=== PATIENT | male | born 1960 | race Hispanic/Latino ===

== ENCOUNTER 2022-05-31 10:38 | Emergency (ER) | payer SELFPAY ==
--- NOTE | 2022-05-31 11:02 | Event Note ---
ED Screening Note ED Screening Note: hx mi/ k stones severe abd pain with htn This initial assessment/diagnostic orders/clinical plan/treatment(s) is/are subject to change based on patients health status, clinical progression and re- assessment by fellow clinical providers in the ED. Further treatment and workup at subsequent clinical providers discretion. Patient/guardian urged not to elope from the ED as their condition may be serious if not clinically assessed and managed. Initial orders include: ro acs ro dissection ro k stone to main
[2022-05-31 11:56] LABS: Basophils # (Auto) 0.1 K/mm3 (0.0-0.1); Basophils % (Auto) 1.1 % (0.0-1.8); Eosinophils # (Auto) 0.1 K/mm3 (0.0-0.4); Eosinophils % (Auto) 0.5 % (0.0-4.3); Hematocrit 48.6 % (35.5-45.6); Hemoglobin 15.8 gm/dl (11.8-15.2); Lymphocytes # (Auto) 1.2 K/mm3 (1.2-5.4); Lymphocytes % (Auto) 9.2 % (13.4-35.0); Mean Corpuscular HGB Conc 33 % (32-34); Mean Corpuscular Volume 100 fl (84-94); Monocytes # (Auto) 0.6 K/mm3 (0.0-0.8); Platelet Count 224 K/mm3 (140-440); Red Blood Count 4.85 M/mm3 (3.65-5.03); Red Cell Distribution Width 14.5 % (13.2-15.2)
--- NOTE | 2022-05-31 11:56 | XRay Report ---
CHEST 2 VIEWS INDICATION / CLINICAL INFORMATION: Chest Pain. COMPARISON: None available. FINDINGS: SUPPORT DEVICES: None. HEART / MEDIASTINUM: No significant abnormality. LUNGS / PLEURA: No significant pulmonary or pleural abnormality. No pneumothorax. ADDITIONAL FINDINGS: No significant additional findings. IMPRESSION: 1. No acute findings. Signer Name: Morales Murillo MD Signed: 05/31/2022 11:51 AM Workstation Name: [email or web address]
[2022-05-31 12:04] LABS: INR 0.99 (0.87-1.13)
[2022-05-31 12:05] LABS: Partial Thromboplastin Time 25.8 Sec. (24.2-36.6)
[2022-05-31 12:26] LABS: Alanine Aminotransferase 53 units/L (7-56); Albumin 4.6 g/dL (3.9-5); BUN/Creatinine Ratio 11; Blood Urea Nitrogen 17 mg/dL (9-20); Hemolysis Index 4
--- NOTE | 2022-05-31 14:37 | Emergency Department Report ---
ED Abdominal Pain HPI - General Chief Complaint: Abdominal Pain Stated Complaint: EXTREME PAIN L SIDE Time Seen by Provider: 05/31/22 11:01 Source: patient Mode of arrival: Ambulatory Limitations: No Limitations - History of Present Illness MD Complaint: abdominal pain Location: L flank Radiation: LLQ, suprapubic Severity: moderate, severe Quality: stabbing, sharp Consistency: intermittent Worsens With: movement Context: other (Previous history of renal calculi and states that it feels similar) - Related Data Previous Rx's Medication Instructions Recorded Last Taken Type Ketorolac [Toradol] 10 mg PO Q6H PRN #15 tablet 05/31/22 Unknown Rx Nitrofurantoin [place]/M-Cryst 100 mg PO Q12HR #20 capsule 05/31/22 Unknown Rx [Macrobid CAP] Tamsulosin [Flomax] 0.4 mg PO QDAY #10 cap 05/31/22 Unknown Rx Allergies Allergy/AdvReac Type Severity Reaction Status Date / Time Egg Derived Allergy Unknown Verified 05/31/22 10:58 nizatidine [From Axid] Allergy Unknown Verified 05/31/22 10:58 ED Review of Systems ROS: Stated complaint: EXTREME PAIN L SIDE Other details as noted in HPI Comment: All other systems reviewed and negative ED Past Medical Hx - Past Medical History Previous Medical History?: Yes Hx Hypertension: Yes Additional medical history: h attack 2005 - Medications Home Medications: Home Medications Medication Instructions Recorded Confirmed Last Taken Type Ketorolac [Toradol] 10 mg PO Q6H PRN #15 tablet 05/31/22 Unknown Rx Nitrofurantoin [place]/M-Cryst 100 mg PO Q12HR #20 capsule 05/31/22 Unknown Rx [Macrobid CAP] Tamsulosin [Flomax] 0.4 mg PO QDAY #10 cap 05/31/22 Unknown Rx ED Physical Exam - General Limitations: No Limitations General appearance: alert, in no apparent distress - Head Head exam: Present: atraumatic, normocephalic - Eye Eye exam: Present: normal appearance, PERRL, EOMI - ENT ENT exam: Present: mucous membranes moist - Neck Neck exam: Present: normal inspection - Respiratory Respiratory exam: Present: normal lung sounds bilaterally. Absent: respiratory distress - Cardiovascular Cardiovascular Exam: Present: regular rate, normal rhythm. Absent: systolic murmur, diastolic murmur, rubs, gallop - GI/Abdominal GI/Abdominal exam: Present: soft, tenderness (Tenderness to the left flank and left lower quadrant with palpation. Bowel sounds positive sounds all quadrants), normal bowel sounds. Absent: hyperactive bowel sounds, hypoactive bowel sounds, organomegaly, mass - Rectal Rectal exam: Present: deferred - Extremities Exam Extremities exam: Present: normal inspection - Back Exam Back exam: Present: normal inspection, CVA tenderness (L). Absent: muscle spasm, paraspinal tenderness, vertebral tenderness - Neurological Exam Neurological exam: Present: alert, oriented X3, CN II-XII intact, normal gait - Psychiatric Psychiatric exam: Present: normal affect, normal mood - Skin Skin exam: Present: warm, dry, intact, normal color. Absent: rash ED Course Vital Signs 05/31/22 05/31/22 05/31/22 10:59 15:15 15:17 Temperature 98.2 F Pulse Rate 75 90 90 Respiratory 16 18 18 Rate Blood Pressure 143/86 Blood Pressure 191/119 143/86 [Left] O2 Sat by Pulse 97 96 96 Oximetry ED Medical Decision Making - Lab Data Result diagrams: 05/31/22 11:26 05/31/22 11:26 Lab Results 05/31/22 05/31/22 05/31/22 Range/Units 11:26 11:26 11:26 WBC 12.7 H (4.5-11.0) K/mm3 RBC 4.85 (3.65-5.03) M/mm3 Hgb 15.8 H (11.8-15.2) gm/dl Hct 48.6 H (35.5-45.6) % MCV 100 H (84-94) fl MCH 33 H (28-32) pg MCHC 33 (32-34) % RDW 14.5 (13.2-15.2) % Plt Count 224 (140-440) K/mm3 Lymph % (Auto) 9.2 L (13.4-35.0) % [place] % (Auto) 5.0 (0.0-7.3) % Eos % (Auto) 0.5 (0.0-4.3) % Baso % (Auto) 1.1 (0.0-1.8) % Lymph # (Auto) 1.2 (1.2-5.4) K/mm3 [place] # (Auto) 0.6 (0.0-0.8) K/mm3 Eos # (Auto) 0.1 (0.0-0.4) K/mm3 Baso # (Auto) 0.1 (0.0-0.1) K/mm3 Seg Neutrophils % 84.2 H (40.0-70.0) % Seg Neutrophils # 10.7 H (1.8-7.7) K/mm3 PT 14.2 (12.2-14.9) Sec. INR 0.99 (0.87-1.13) APTT 25.8 (24.2-36.6) Sec. Sodium 142 (137-145) mmol/L Potassium 4.4 (3.6-5.0) mmol/L Chloride 100.6 (98-107) mmol/L Carbon Dioxide 24 (22-30) mmol/L Anion Gap 22 mmol/L BUN 17 (9-20) mg/dL Creatinine 1.5 H (0.8-1.3) mg/dL Estimated GFR 48 ml/min BUN/Creatinine Ratio 11 % Glucose 265 H (75-100) mg/dL Calcium 10.0 (8.4-10.2) mg/dL Total Bilirubin 0.70 (0.1-1.2) mg/dL AST 35 (5-40) units/L ALT 53 (7-56) units/L Alkaline Phosphatase 59 (35-129) units/L Troponin T < 0.010 (0.00-0.029) ng/mL Total Protein 7.7 (6.3-8.2) g/dL Albumin 4.6 (3.9-5) g/dL Albumin/Globulin Ratio 1.5 % Urine Color (Yellow) Urine Turbidity (Clear) Urine pH (5.0-7.0) Ur Specific [place] (1.003-1.030) Urine Protein (Negative) mg/dL Urine Glucose (UA) (Negative) mg/dL Urine Ketones (Negative) mg/dL Urine Blood (Negative) Urine Nitrite (Negative) Urine Bilirubin (Negative) Urine Urobilinogen (<2.0) mg/dL Ur Leukocyte Esterase (Negative) Urine WBC (Auto) (0.0-6.0) /HPF Urine RBC (Auto) (0.0-6.0) /HPF U Epithel Cells (Auto) (0-13.0) /HPF Urine Mucus /HPF 05/31/22 Range/Units 15:03 WBC (4.5-11.0) K/mm3 RBC (3.65-5.03) M/mm3 Hgb (11.8-15.2) gm/dl Hct (35.5-45.6) % MCV (84-94) fl MCH (28-32) pg MCHC (32-34) % RDW (13.2-15.2) % Plt Count (140-440) K/mm3 Lymph % (Auto) (13.4-35.0) % [place] % (Auto) (0.0-7.3) % Eos % (Auto) (0.0-4.3) % Baso % (Auto) (0.0-1.8) % Lymph # (Auto) (1.2-5.4) K/mm3 [place] # (Auto) (0.0-0.8) K/mm3 Eos # (Auto) (0.0-0.4) K/mm3 Baso # (Auto) (0.0-0.1) K/mm3 Seg Neutrophils % (40.0-70.0) % Seg Neutrophils # (1.8-7.7) K/mm3 PT (12.2-14.9) Sec. INR (0.87-1.13) APTT (24.2-36.6) Sec. Sodium (137-145) mmol/L Potassium (3.6-5.0) mmol/L Chloride (98-107) mmol/L Carbon Dioxide (22-30) mmol/L Anion Gap mmol/L BUN (9-20) mg/dL Creatinine (0.8-1.3) mg/dL Estimated GFR ml/min BUN/Creatinine Ratio % Glucose (75-100) mg/dL Calcium (8.4-10.2) mg/dL Total Bilirubin (0.1-1.2) mg/dL AST (5-40) units/L ALT (7-56) units/L Alkaline Phosphatase (35-129) units/L Troponin T (0.00-0.029) ng/mL Total Protein (6.3-8.2) g/dL Albumin (3.9-5) g/dL Albumin/Globulin Ratio % Urine Color Yellow (Yellow) Urine Turbidity Cloudy (Clear) Urine pH 6.0 (5.0-7.0) Ur Specific [place] 1.035 H (1.003-1.030) Urine Protein <15 mg/dl (Negative) mg/dL Urine Glucose (UA) Trace (Negative) mg/dL Urine Ketones 15 (Negative) mg/dL Urine Blood Large A (Negative) Urine Nitrite Negative (Negative) Urine Bilirubin Negative (Negative) Urine Urobilinogen < 2.0 (<2.0) mg/dL Ur Leukocyte Esterase Negative (Negative) Urine WBC (Auto) < 1.0 (0.0-6.0) /HPF Urine RBC (Auto) 24.0 (0.0-6.0) /HPF U Epithel Cells (Auto) 1.0 (0-13.0) /HPF Urine Mucus 3+ /HPF - Radiology Data Radiology results: report reviewed [facility] [address] [id number] Cat Scan Report Signed Patient: ANA PAULA DIAZ MR#: [id number] : 1960 Acct:[id number] Age/Sex: 61 / M ADM Date: 05/31/22 Loc: ED Attending Dr: Ordering Physician: RADHA VENTURA Date of Service: 05/31/22 Procedure(s): CT abdomen pelvis wo con Accession Number(s): [id number] cc: RADHA VENTURA CT ABDOMEN AND PELVIS WITHOUT CONTRAST HISTORY: flank and left pelvic pain COMPARISON: None. TECHNIQUE: Axial CT images were obtained through the abdomen and pelvis without IV contrast. Sagittal and coronal reformatted images. All CT scans at this location are performed using CT dose reduction for ALARA by means of automated exposure control. FINDINGS: CT ABDOMEN: Lung Bases: Clear. Liver: Hypodense. No enlargement or focal lesion. Biliary: A few tiny stones are identified in the dependent gallbladder. No evidence for acute cholecystitis. No biliary ductal dilatation. Spleen: No significant abnormality. Unenlarged. Pancreas: No significant abnormality. Adrenals: No significant abnormality. Kidneys: A 5.5 mm stone is identified in the mid left ureter near the level of L3-4. There is mild upstream left hydronephrosis. Mild left perihilar nephric and ureteral stranding. A punctate stone is also identified in the mid left kidney. The right kidney and collecting system are unremarkable. Lymphatics: No lymphadenopathy. Vasculature: Mild atherosclerotic disease in aorta and iliac arteries without acute abnormality. Bowel/Peritoneum: No significant abnormality. No free air. No free fluid. CT PELVIS: : No significant abnormality. Osseous Structures: Nothing acute. Mild thoracolumbar spondylosis. Additional Findings: None IMPRESSION: 5.5 mm calculus in the mid left ureter. Mildly obstructing. Mild hepatic steatosis. Signer Name: Mark To Jr, MD Signed: 05/31/2022 3:26 PM Workstation Name: [id number] Transcribed By: TTR Dictated By: MARK TO JR, MD Electronically Authenticated By: MARK TO JR, MD Signed Date/Time: 05/31/221525 DD/ 16 - Medical Decision Making Clinically the patient presents with nephrolithasis. IV pain medications, antiemetics, and IV fluids were given. A CT Abdomen/Pelvis was obtained for conc audra for a possible obstructing kidney stone and to rule out other pathologic conditions. The CT confirmed revealed a stone at L3-L4 the left ureter. The patient's labs were significant for significant elevation in and and WBCs but no evidence of any renal insufficiency. With pain medication the patient improved significantly. The patient is referred to the on-call urologist for follow up and is discharged with oral narcotics for pain control, Flomax, antiemetics, and given the following return precautions: Fever > 100.5, pain not controlled with narcotics, vomiting or any other concerns and to strain the urine Critical care attestation.: If time is entered above; I have spent that time in minutes in the direct care of this critically ill patient, excluding procedure time. ED Disposition Clinical Impression: Left ureteral stone Disposition: HOME / SELF CARE / HOMELESS Is pt being admited?: No Does the pt Need Aspirin: No Condition: Stable Instructions: Ureteroscopy Prescriptions: Tamsulosin [Flomax] 0.4 mg PO QDAY #10 cap Nitrofurantoin [place]/M-Cryst [Macrobid CAP] 100 mg PO Q12HR #20 capsule Ketorolac [Toradol] 10 mg PO Q6H PRN #15 tablet PRN Reason: Pain Referrals: [facility] [Provider Group] - 2-3 Days CARBUCCIA,PAMELA, MD [Primary Care Provider] - 3-5 Days
[2022-05-31] MEDS ORDERED: MORPHINE 4 MG/1 ML INJ IV STA ×2 (14:43→17:51)
[2022-05-31] MEDS ORDERED: ONDANSETRON 4 MG/2 ML INJ IV STA (14:43)
[2022-05-31 15:17] VITALS: BP 143/86
--- NOTE | 2022-05-31 15:31 | Cat Scan Report ---
CT ABDOMEN AND PELVIS WITHOUT CONTRAST HISTORY: flank and left pelvic pain COMPARISON: None. TECHNIQUE: Axial CT images were obtained through the abdomen and pelvis without IV contrast. Sagittal and coronal reformatted images. All CT scans at this location are performed using CT dose reduction for ALARA by means of automated exposure control. FINDINGS: CT ABDOMEN: Lung Bases: Clear. Liver: Hypodense. No enlargement or focal lesion. Biliary: A few tiny stones are identified in the dependent gallbladder. No evidence for acute cholecy stitis. No biliary ductal dilatation. Spleen: No significant abnormality. Unenlarged. Pancreas: No significant abnormality. Adrenals: No significant abnormality. Kidneys: A 5.5 mm stone is identified in the mid left ureter near the level of L3-4. There is mild up stream left hydronephrosis. Mild left perihilar nephric and ureteral stranding. A punctate stone is a lso identified in the mid left kidney. The right kidney and collecting system are unremarkable. Lymphatics: No lymphadenopathy. Vasculature: Mild atherosclerotic disease in aorta and iliac arteries without acute abnormality. Bowel/Peritoneum: No significant abnormality. No free air. No free fluid. CT PELVIS: : No significant abnormality. Osseous Structures: Nothing acute. Mild thoracolumbar spondylosis. Additional Findings: None IMPRESSION: 5.5 mm calculus in the mid left ureter. Mildly obstructing. Mild hepatic steatosis. Signer Name: Mark Fuentes Jr, MD Signed: 05/31/2022 3:26 PM Workstation Name: [id number]
[2022-05-31 16:29] LABS: Bilirubin,Urine Negative (Negative); Blood,Urine Large (Negative); Color,Urine Yellow (Yellow)
[2022-05-31 16:30] LABS: Protein,Urine <15 mg/dL mg/dL (Negative); Urobilinogen,Urine < 2.0 mg/dL (<2.0)
[2022-05-31 16:39] LABS: Mucus,Urine 3+ /HPF; WBC,Urine < 1.0 /HPF (0.0-6.0)
[2022-05-31] MEDS ORDERED: KETOROLAC 30 MG/1 ML INJ IV STA (17:51)
--- NOTE | 2022-05-31 17:59 | Electrocardiograph Report ---
[facility] Test Date: 2022-05-31 Test Time: 11:06:26 Pat Name: ANA PAULA DIAZ Department: Room: Gender: M Office Clerk Routine: ASIA : 1960 Requested By: KIM HESS Order Number: [id number] Reading MD: Hoa Nicholson Measurements Intervals [place] Rate: 80 P: 57 WV: 171 QRS: -10 QRSD: 99 T: 24 QT: 387 QTc: 447 Interpretive Statements Sinus rhythm No previous ECG available for comparison Electronically Signed On 05-31-2022 17:58:57 EDT by Hoa Nicholson
== END 2022-05-31 18:58 | disposition home or self-care (01) ==
LOC: ED 10:38
DX: N21.1 Calculus in urethra (principal); I10 Essential (primary) hypertension; Z91.012 Allergy to eggs; Z91.09 Other allergy status, other than to drugs and biological substances; Z79.899 Other long term (current) drug therapy
CPT/HCPCS: 36415; 71046; 74176; 80053; 81001; 84484; 85025; 85610; 85730; 93005; 96374; 96375; 96376; 99284; J1885; J2270; J2405